=== PATIENT | female | born 1965 | race Caucasian/White ===

== ENCOUNTER 2020-06-11 12:59 | Emergency (ER) | payer MEDICAID ==
[~2020-06-11] VITALS: Ht 165.1 cm; Wt 100.0 kg
[~2020-06-11 12:59] MED LIST: AMIT-189 PO; AMLO5TAB PO; ATOR20TA66 PO; HYDR-3965 PO; LIRA0.6P SQ; LISI-600 PO; METF500T PO
[2020-06-11 13:25] LABS: CLARITY,URINE SLIGHTLY CLOUDY (Clear); COLOR,URINE YELLOW (Yellow); GLUCOSE, URINE 100 mg/dl (Neg); KETONES,URINE NEGATIVE (Neg); LEUKOCYTE ESTERASE ,URINE NEGATIVE (Neg); NITRITES, URINE NEGATIVE (Neg); OCCULT BLOOD,URINE NEGATIVE (Neg); PH,URINE 6.5 (4.8-8.0); PROTEIN,URINE NEGATIVE (Neg); UROBILINOGEN,URINE 0.2 E.U/dL (0.2-1.0)
[2020-06-11 13:26] LABS: UA COLLECTION TYPE CLN CATCH MIDSTREAM
[2020-06-11 13:32] LABS: MUCUS STRANDS MODERATE /LPF (Neg); SQUAMOUS EPITHELIAL CELL,UR MANY /LPF (FEW)
[2020-06-11 13:33] LABS: BACTERIA,URINE 1+ /HPF (Neg); RBC,URINE 0-2 /HPF (0-2); WBC,URINE 0-4 /HPF (0-4)
[2020-06-11] MEDS ORDERED: normal saline 1000ML IV soln IVB ONE (15:25)
[2020-06-11] MEDS ORDERED: morphine 4 MG/ML inj SYRINge IV ONE (15:25)
[2020-06-11] MEDS ORDERED: ondansetron/PF 4mg/2ml inj IV ONE (15:25)
[2020-06-11 15:31] LABS: URINE HCG NEGATIVE (NEG)
[2020-06-11 15:39] LABS: BASOPHILS # (AUTO) 0.1 X10'3 (0-0.2); BASOPHILS % (AUTO) 1.1 % (0-1); EOSINOPHILS # (AUTO) 0.3 X10'3 (0-0.9); EOSINOPHILS % (AUTO) 3.5 % (0-6); HEMATOCRIT 43.1 % (35.0-45.0); HEMOGLOBIN 14.5 g/dl (12.0-16.0); LYMPHOCYTES # (AUTO) 3.6 X10'3 (1.1-4.8); LYMPHOCYTES % (AUTO) 35.9 % (21-51); MEAN CORPUSCULAR HEMOGLOBIN 26.5 PG (27.0-31.0); MEAN CORPUSCULAR HGB CONC 33.6 g/dL (33.0-36.5); MEAN CORPUSCULAR VOLUME 79.1 FL (78-98); MONOCYTES # (AUTO) 0.6 X10'3 (0-0.9); NEUTROPHILS # (AUTO) 5.3 X10'3 (1.8-7.7); NEUTROPHILS % (AUTO) 53.5 % (42-75); PLATELET COUNT 373 X10'3 (140-440); RED BLOOD COUNT 5.45 X10'6 (4.20-5.60); RED CELL DISTRIBUTION WIDTH 13.3 % (11.5-14.5); WHITE BLOOD COUNT 9.9 X10'3 (4.5-11.0)
[2020-06-11 15:59] LABS: ALANINE AMINOTRANSFERASE 32 U/L (12-78); ALBUMIN 3.7 G/DL (3.4-5.0); ALBUMIN/GLOBULIN RATIO 0.9 (1.1-1.5); ALKALINE PHOSPHATASE 156 IU/L (46-116); ANION GAP 8 (8-16); ASPARTATE AMINO TRANSFERASE 21 U/L (10-37); BILIRUBIN,TOTAL 0.5 MG/DL (0.1-1.0); BLOOD UREA NITROGEN 14 MG/DL (7-18); BUN/CREATININE RATIO 21.5 (6.6-38.0); CALCIUM 9.5 MG/DL (8.5-10.1); CHLORIDE 102 MMOL/L (99-107); CREATININE 0.65 MG/DL (0.40-0.90); GLUCOSE 185 MG/DL (70-104); POTASSIUM 3.7 MMOL/L (3.5-5.1); SODIUM 137 MMOL/L (135-145); TOTAL CARBON DIOXIDE 26.9 MMOL/L (24-32); TOTAL PROTEIN 7.9 G/DL (6.4-8.2); eGFR > 90 ML/MIN
[2020-06-11] MEDS ORDERED: ONDA4TAB6 PO (16:27)
[2020-06-11 17:14] VITALS: BP 160/92
== END 2020-06-11 17:05 | disposition home or self-care (01) ==
LOC: ER 12:59
DX: K57.90 Diverticulosis of intestine, part unspecified, without perforation or abscess without bleeding (principal); G43.909 Migraine, unspecified, not intractable, without status migrainosus; E11.9 Type 2 diabetes mellitus without complications; Z98.890 Other specified postprocedural states; Z79.899 Other long term (current) drug therapy
CPT/HCPCS: 36415; 74176; 80053; 81001; 81025; 83605; 85025; 96374; 96375; 99284; J2270; J2405; J7030

== ENCOUNTER 2021-01-17 19:27 | Emergency (ER) | payer MEDICAID ==
[~2021-01-17] VITALS: Ht 162.6 cm; Wt 95.2 kg
[~2021-01-17 19:27] MED LIST changes: -LISI-600 PO; +LISI20TA28 PO; +ONDA4TAB6 PO
[2021-01-17 20:33] LABS: CLARITY,URINE CLEAR (Clear); COLOR,URINE YELLOW (Yellow); GLUCOSE, URINE >=1000 mg/dl (Neg); KETONES,URINE NEGATIVE (Neg); LEUKOCYTE ESTERASE ,URINE NEGATIVE (Neg); NITRITES, URINE NEGATIVE (Neg); OCCULT BLOOD,URINE NEGATIVE (Neg); PROTEIN,URINE NEGATIVE (Neg); UROBILINOGEN,URINE 0.2 E.U/dL (0.2-1.0)
[2021-01-17 20:34] LABS: BASOPHILS # (AUTO) 0.1 X10'3 (0-0.2); BASOPHILS % (AUTO) 0.8 % (0-1); EOSINOPHILS # (AUTO) 0.3 X10'3 (0-0.9); EOSINOPHILS % (AUTO) 2.2 % (0-6); HEMATOCRIT 41.1 % (35.0-45.0); HEMOGLOBIN 13.8 g/dl (12.0-16.0); LYMPHOCYTES # (AUTO) 2.7 X10'3 (1.1-4.8); MEAN CORPUSCULAR HEMOGLOBIN 26.9 PG (27.0-31.0); MEAN CORPUSCULAR HGB CONC 33.6 g/dL (33.0-36.5); MEAN CORPUSCULAR VOLUME 80.2 FL (78-98); MEAN PLATELET VOLUME 8.6 FL (7.4-10.4); MONOCYTES # (AUTO) 0.8 X10'3 (0-0.9); MONOCYTES % (AUTO) 6.5 % (2-12); NEUTROPHILS # (AUTO) 8.3 X10'3 (1.8-7.7); NEUTROPHILS % (AUTO) 68.5 % (42-75); PLATELET COUNT 355 X10'3 (140-440); RED BLOOD COUNT 5.12 X10'6 (4.20-5.60); RED CELL DISTRIBUTION WIDTH 12.2 % (11.5-14.5); WHITE BLOOD COUNT 12.1 X10'3 (4.5-11.0)
[2021-01-17 20:35] LABS: UA COLLECTION TYPE CLN CATCH MIDSTREAM
[2021-01-17 20:38] LABS: BACTERIA,URINE NONE SEEN /HPF (Neg); MUCUS STRANDS NONE SEEN /LPF (Neg); RBC,URINE NONE SEEN /HPF (0-2); SQUAMOUS EPITHELIAL CELL,UR FEW /LPF (FEW); WBC,URINE NONE SEEN /HPF (0-4)
[2021-01-17 20:51] LABS: ALANINE AMINOTRANSFERASE 18 U/L (12-78); ALBUMIN 3.3 G/DL (3.4-5.0); ALBUMIN/GLOBULIN RATIO 0.8 (1.1-1.5); ALKALINE PHOSPHATASE 162 IU/L (46-116); ANION GAP 11 (8-16); ASPARTATE AMINO TRANSFERASE 11 U/L (10-37); BILIRUBIN,TOTAL 0.3 MG/DL (0.1-1.0); BLOOD UREA NITROGEN 17 MG/DL (7-18); BUN/CREATININE RATIO 22.1 (6.6-38.0); CALCIUM 9.4 MG/DL (8.5-10.1); CHLORIDE 101 MMOL/L (99-107); CREATININE 0.77 MG/DL (0.40-0.90); GLUCOSE 316 MG/DL (70-104); LIPASE 100 U/L (73-393); SODIUM 138 MMOL/L (135-145); TOTAL CARBON DIOXIDE 26.1 MMOL/L (24-32); TOTAL PROTEIN 7.7 G/DL (6.4-8.2); eGFR 78 ML/MIN
[2021-01-17] MEDS ORDERED: metroNIDAZOLE-Flagyl 500mg/NS 100 ML IV ONE (20:55)
[2021-01-17] MEDS ORDERED: normal saline 1000ML IV soln IVB ONE ×2 (20:55)
[2021-01-17] MEDS ORDERED: levoFLOXACIN-Levaquin 750MG/D5 150 ML IV ONE (20:55)
[2021-01-17] MEDS ORDERED: morphine 4 MG/ML inj SYRINge IV ONE ×2 (20:55)
[2021-01-17] MEDS ORDERED: METR-159 PO (21:11)
[2021-01-17] MEDS ORDERED: CIPR-202 PO (21:11)
[2021-01-17 22:06] VITALS: BP 121/79
== END 2021-01-17 22:35 | disposition home or self-care (01) ==
LOC: ER 19:28
DX: K57.92 Diverticulitis of intestine, part unspecified, without perforation or abscess without bleeding (principal); R10.32 Left lower quadrant pain; G43.909 Migraine, unspecified, not intractable, without status migrainosus; I10 Essential (primary) hypertension; E11.9 Type 2 diabetes mellitus without complications; Z79.2 Long term (current) use of antibiotics; Z87.442 Personal history of urinary calculi; Z79.899 Other long term (current) drug therapy
CPT/HCPCS: 36415; 80053; 81001; 83690; 85025; 96365; 96368; 96375; 96376; 99284; J1956; J2270; J3490; J7030

== ENCOUNTER 2022-07-27 22:09 | Emergency (ER) | payer MEDICAID ==
[~2022-07-27] VITALS: Ht 165.1 cm; Wt 103.2 kg
[2022-07-27 22:32] LABS: BASOPHILS # (AUTO) 0.1 X10'3 (0-0.2); BASOPHILS % (AUTO) 1.1 % (0-1); EOSINOPHILS # (AUTO) 0.3 X10'3 (0-0.9); EOSINOPHILS % (AUTO) 3.7 % (0-6); HEMATOCRIT 42.2 % (35.0-45.0); HEMOGLOBIN 14.1 g/dl (12.0-16.0); LYMPHOCYTES % (AUTO) 39.4 % (21-51); MEAN CORPUSCULAR HEMOGLOBIN 26.7 PG (27.0-31.0); MEAN CORPUSCULAR HGB CONC 33.5 g/dL (33.0-36.5); MEAN CORPUSCULAR VOLUME 79.7 FL (78-98); MEAN PLATELET VOLUME 9.4 FL (7.4-10.4); MONOCYTES # (AUTO) 0.6 X10'3 (0-0.9); MONOCYTES % (AUTO) 7.7 % (2-12); NEUTROPHILS # (AUTO) 3.7 X10'3 (1.8-7.7); NEUTROPHILS % (AUTO) 48.1 % (42-75); PLATELET COUNT 270 X10'3 (140-440); RED CELL DISTRIBUTION WIDTH 13.6 % (11.5-14.5); WHITE BLOOD COUNT 7.7 X10'3 (4.5-11.0)
[2022-07-27 22:44] LABS: ALANINE AMINOTRANSFERASE 27 U/L (12-78); ALBUMIN 3.8 G/DL (3.4-5.0); ALBUMIN/GLOBULIN RATIO 0.9 (1.1-1.5); ALKALINE PHOSPHATASE 145 IU/L (46-116); ANION GAP 8 (8-16); ASPARTATE AMINO TRANSFERASE 18 U/L (10-37); BILIRUBIN,TOTAL 0.3 MG/DL (0.1-1.0); BLOOD UREA NITROGEN 15 MG/DL (7-18); BUN/CREATININE RATIO 16.7 (6.6-38.0); CALCIUM 8.9 MG/DL (8.5-10.1); CHLORIDE 102 MMOL/L (99-107); GLUCOSE 388 MG/DL (70-104); POTASSIUM 3.8 MMOL/L (3.5-5.1); SODIUM 137 MMOL/L (135-145); TOTAL CARBON DIOXIDE 26.6 MMOL/L (24-32); TOTAL PROTEIN 7.9 G/DL (6.4-8.2); eGFR 65 ML/MIN
[2022-07-27] MEDS ORDERED: cloNIDine 0.1 mg tablet PO STA (23:33)
[2022-07-28] MEDS ORDERED: LISI20TA28 PO (00:26)
[2022-07-28 00:50] VITALS: BP 166/80
== END 2022-07-28 00:52 | disposition home or self-care (01) ==
LOC: ER 22:10
DX: I10 Essential (primary) hypertension (principal); G43.909 Migraine, unspecified, not intractable, without status migrainosus; E11.9 Type 2 diabetes mellitus without complications
CPT/HCPCS: 36415; 71045; 80053; 83880; 84484; 85025; 93005; 99285

== ENCOUNTER → 2024-05-10 | Outpatient (CLI) | payer MEDICAID ==
[~2024-05-10] MED LIST changes: -AMIT-189 PO; +AMIT50TA15 PO
== END | disposition home or self-care (01) ==
LOC: MRI 16:52
PROVIDERS: ATTEND Family Medicine
DX: M67.462 Ganglion, left knee (principal); M25.562 Pain in left knee; M17.12 Unilateral primary osteoarthritis, left knee; M76.52 Patellar tendinitis, left knee
CPT/HCPCS: 73721

== ENCOUNTER 2025-05-03 06:57 | Day surgery (SDC) | payer MEDICAID ==
--- NOTE | 2025-04-25 11:02 | ELECTROCARDIOGRAPH REPORT ---
[facility] Test Date: 2025-04-25 Test Time: 10:58:14 Pat Name: GONZALO STEWART Department: [facility]-PRE-OP Patient ID: [facility]-[id number] Room: Gender: F Ductfixing Plumber: OLEGARIO : 1965 Requested By: MITESH OTOOLE Order Number: [id number] Reading MD: Dr. Nitesh Valladares Measurements Intervals [place] Rate: 85 P: 69 SD: 170 QRS: 47 QRSD: 92 T: 46 QT: 363 QTc: 432 Interpretive Statements Sinus rhythm Electronically Signed On 04-26-2025 8:20:[address] Nitesh Valladares Please click the below link to view image of tracing.
[2025-04-25 11:05] LABS: PRE OP HEMOGLOBIN 14.1 g/dL (12.0-16.0); PRE OP WHITE BLOOD COUNT 10.1 10'3 (4.8-10.8); RED BLOOD COUNT 5.06 X10'6 (4.20-5.60)
[2025-04-25 11:06] LABS: BASOPHILS # (AUTO) 0.1 X10'3 (0-0.2); BASOPHILS % (AUTO) 1.3 % (0-1); EOSINOPHILS # (AUTO) 1.1 X10'3 (0-0.9); EOSINOPHILS % (AUTO) 10.5 % (0-6); LYMPHOCYTES # (AUTO) 2.3 X10'3 (1.1-4.8); MEAN CORPUSCULAR HEMOGLOBIN 27.8 PG (27.0-31.0); MEAN CORPUSCULAR HGB CONC 34.4 g/dL (33.0-36.5); MEAN CORPUSCULAR VOLUME 80.9 FL (78-98); MEAN PLATELET VOLUME 10.6 FL (7.4-10.4); MONOCYTES # (AUTO) 0.5 X10'3 (0-0.9); MONOCYTES % (AUTO) 5.3 % (2-12); NEUTROPHILS # (AUTO) 6.1 X10'3 (1.8-7.7); NEUTROPHILS % (AUTO) 59.9 % (42-75); PRE OP HEMATOCRIT 40.9 % (35.0-45.0); PRE OP PLATELET COUNT 335 X10'3 (140-440); RED CELL DISTRIBUTION WIDTH 15.1 % (11.5-14.5)
[2025-04-25 11:14] LABS: ALBUMIN 3.7 G/DL (3.4-5.0); ALBUMIN/GLOBULIN RATIO 1.1 (1.1-1.5); ALKALINE PHOSPHATASE 148 IU/L (46-116); BLOOD UREA NITROGEN 16 MG/DL (7-18); BUN/CREATININE RATIO 16.3 (10.0-20.0); CALCIUM 9.1 MG/DL (8.5-10.1); CHLORIDE 104 MMOL/L (99-107); CREATININE 0.98 MG/DL (0.40-0.90); PRE OP ALT 31 U/L (30-65); PRE OP ANION GAP 9 (8-16); PRE OP AST 23 U/L (10-37); PRE OP BILIRUB, TOTAL 0.7 MG/DL (0.0-1.0); PRE OP POTASSIUM 4.3 MMOL/L (3.4-5.1); PRE OP SODIUM 140 MMOL/L (135-145); TOTAL CARBON DIOXIDE 26.9 MMOL/L (24-32); eGFR 58 ML/MIN
[2025-04-25 11:25] LABS: PRE OP GLUCOSE 315 MG/DL (70-104)
[2025-05-03] VITALS (11 sets, daily range): BP systolic 138–171; BP diastolic 77–91; PULSE 88–109; RESP 10–18; TEMP 97.6; O2SAT 93–99
[~2025-05-03] VITALS: Ht 165.1 cm; Wt 105.8 kg
[2025-05-03] MEDS: ceFAZolin 2gm/dext,iso 50mL 50 ML IV ONE (05:30)
[~2025-05-03 06:57] MED LIST changes: -AMIT50TA15 PO; -AMLO5TAB PO; -ATOR20TA66 PO; +DULO30CA52 PO; -HYDR-3965 PO; -LIRA0.6P SQ; -LISI20TA28 PO; -METF500T PO; -ONDA4TAB6 PO; +PREG300C20 PO; +TIRZ12.53 SQ
[2025-05-03] MEDS: famotidine 20mg tablet PO ONE (08:20)
[2025-05-03] MEDS: ringers solution, lacted 1,000 ML IV SCH ×2 (08:22→11:45)
[2025-05-03] MEDS: insulin regular, human 10 units/0.1 ml syringe SQ ONE (08:22)
[2025-05-03] MEDS ORDERED: LIDOcaine 1% (10mg/ml)w/preservative inj. 20ml MDV ONE (09:37)
[2025-05-03] MEDS ORDERED: BUPIVAcaine 2.5mg/ml inj 50ml vial (contains preservative) ONE (09:38)
[2025-05-03] MEDS ORDERED: sevoflurane 250ml liquid IH ONE (09:45)
[2025-05-03] MEDS ORDERED: morphine 4 MG/ML inj SYRINge IV PRN (09:50)
[2025-05-03] MEDS ORDERED: HYDROmorphone/PF 0.2 MG/ML SYRINGE IV PRN (09:50)
[2025-05-03] MEDS ORDERED: morphine 2 MG/ML inj. syringe IV PRN (09:50)
[2025-05-03] MEDS ORDERED: meperidine/PF 25mg/ml syringe IV PRN (09:50)
[2025-05-03] MEDS ORDERED: acetaminophen 1,000mg/100ml IV 100 ML IV PRN (09:50)
[2025-05-03] MEDS ORDERED: proCHLORperazine 10 MG/2 ml inj IV PRN (09:50)
[2025-05-03] MEDS ORDERED: ondansetron/PF 4mg/2ml inj IV PRN (09:50)
[2025-05-03] MEDS ORDERED: labetalol 20mg/4ml (5mg/ml) syringe IV PRN (09:50)
[2025-05-03] MEDS ORDERED: midazolam 1 mg/ML 2ml injection ONE (09:54)
[2025-05-03] MEDS ORDERED: fentaNYL /PF 50mcg/ml 5ml ampule ONE (10:17)
[2025-05-03] MEDS: LIDOcaine 1% 30ml preserv. free vial IJ ONE (10:25)
[2025-05-03] MEDS ORDERED: LIDOcaine 2% (20mg/ml) 5ml vial ONE (10:37)
[2025-05-03] MEDS ORDERED: propofol inj 20 ML IV ONE (10:37)
[2025-05-03] MEDS ORDERED: ePHEDrine 50MG/ML INJ. ONE (10:38)
[2025-05-03] MEDS ORDERED: ondansetron/PF 4mg/2ml inj ONE (10:38)
[2025-05-03] MEDS ORDERED: 0.9 % SODIUM CHLORIDE 10 ML VIAL ONE (10:38)
[2025-05-03] MEDS ORDERED: dexamethasone sod phosphate 4mg/ml inj. ONE (10:38)
--- NOTE | 2025-05-03 11:17 | OPERATIVE REPORT ---
Operative Report Providers to ~ Date of Procedure: May 03, 2025 Pre-Operative Diagnosis: Left central breast cancer Post-Operative Diagnosis SAME as PRE-Op Procedure Performed Tracking marker localization segmental mastectomy Surgeon: Mitesh Lim MD Heel Slugger NONE Anesthesiologist: Susy Valladares Type of Anesthesia: General Findings: Tracking marker identified 12 mm from the closest margin which is anterior Complications None Prosthetics\Implants used: None Estimated Blood Loss: Less than 25 cc Specimen Removed: Left central breast mass Description of Procedure: The patient is identified in the supine position with her left arm extended. She is prepped and draped in the usual sterile fashion. Prior to surgery the patient has had an stereotactic guided tracking marker placed in my office identifying the tumor site. Preoperative antibiotics have been administered within 1 hour prior to the patient's incision. SCDs have been applied. A curvilinear incision was made over the audible tracking marker signal. Flaps were raised towards and away from the nipple in the underlying breast tissue was excised in a segmental fashion. The specimen was oriented and sent for patholo gic study in formalin. The wound was thoroughly irrigated. Hemostasis was obtained. The incision was then closed with interrupted 3-0 Vicryl pop-off sutures for the deep layers and a running 3-0 Stratafix suture for skin. Incisions were dressed with Dermabond and Steri-Strips. The patient is taken to the PAR in stable condition. Estimated blood loss less than 25 cc. Final sp onge and needle count was correct x2 Counts repoted as correct: Yes MITESH LIM MD May 03, 2025 11:17
[2025-05-03] MEDS: hydrALAZINE 20mg/ml inj. IV PRN (12:03)
[2025-05-03] MEDS: HYDROmorphone/PF 0.2 MG/ML SYRINGE IV PRN (12:48)
--- NOTE | 2025-05-08 10:12 | PATHOLOGY REPORT ---
[facility] [address] [place] [address] SURGICAL PATHOLOGY REPORT CaseNumber: [id number] Surgeon:Yves Lim M.D. CLINICAL INFORMATION CLINICAL INFORMATION: Left breast segment. Cancer left breast. DIAGNOSIS DIAGNOSIS: BREAST, LEFT; LUMPECTOMY - DUCTAL CARCINOMA IN-SITU, INTERMEDIATE GRADE. - SEE SYNOPTIC REPORT AND MICROSCOPIC DESCRIPTION. - INVASIVE CARCINOMA IS NOT IDENTIFIED. MICROSCOPIC DESCRIPTION MICROSCOPIC DESCRIPTION: 7 H&E stained slides are examined. They show sections of breast tissue with multiple areas of intermediate grade ductal carcinoma in situ, papillary, solid, and cribriform patte rns. I do not see definitive evidence of invasive carcinoma. The in situ carcinoma spans at least 1.5 x 1.4 cm on a slide (A5, surrounding an area of biopsy site related changes), it also spans multiple noncontiguous blocks including A1, A4, A5, and A6. The in situ carcinoma is 2 mm from the blue inked surgical margin (superior), 3 mm from the yellow inked surgical margin (lateral), and 1 mm from the red inked surgical margin (anterior). The orange inked surgical margin (medial) shows focal atypical ducts with significant thermal artifact that are in my opinion suspicious but not diagnostic of ducta l carcinoma in-situ; the differential includes usual ductal hyperplasia and duct-ectasia at the [facility] region. GROSS DESCRIPTION GROSS DESCRIPTION: Received in a container of formalin labeled with the patient's name, number, and " left breast biopsy" is a 46 g oriented excision of fibrofatty breast tissue which measures 6.5 x 5.5 x 3 cm. There are sutures found marking the anterior, superior, and lateral aspects of the excision. The superior margin is marked blue, the inferior margin is marked green, the medial margin is marked orange, the lateral margin is marked yellow, the anterior margin is marked red, and the posterior mar gin is marked black. Sectioning reveals a 0.6 x 0.7 x 0.7 cm firm, topete-leigh neoplasm which is present 0.6 cm from the anterior resection margin. Sectioning the neoplasm reveals foreign material (metalli c clip). Sections are submitted as follows: A1) Superior marginA2) Inferior marginA3) Medial marginA4) Lateral marginA5-A6) Anterior margin with tumorA7) Posterior margin The time at which the specimen was removed was 1050. The time at which the specimen was placed in [facility] was 1054. SYNOPTIC REPORT SYNOPTIC TEXT: DCIS OF THE BREAST: Resection Specimen Procedure: Excision (less than total mastectomy) Specimen Laterality: Left Tumor Tumor Site: Not specified Histologic Type: Ductal carcinoma in situ Size (Extent) of DCIS: 15 x 14 Millimeters (mm) Number of Blocks with DCIS: 4 Number of Blocks Examined: 7 Architectural Patterns: Cribriform; Papillary; Solid Nuclear Grade: Grade II (intermediate) Necrosis: Not identified Microcalcifications: Not identified Margins Margin Status: All margins negative for DCIS Distance from DCIS to Closest Margin: 1 mm Closest Margin(s) to DCIS: Anterior Distance from DCIS to Superior Margin: 2 mm Distance from DCIS to Lateral Margin: 3 mm Margin Comment: The true medial margin appears suspicious for ductal carcinoma in-situ, however, there is significant thermal artifact. Regional Lymph Nodes Regional Lymph Node Status: Not applicable (no regional lymph nodes submitted or found) Pathologic Stage Classification (pTNM, AJCC 8th Edition) pT Category: pTis (DCIS) pN Category: pN not assigned (no nodes submitted or found) [facility] 2023 Q4 Release Electronically signed by: Rob Correia, 05/08/2025 9:33:00 AM
== END 2025-05-03 13:30 | disposition home or self-care (01) ==
LOC: PAS 06:57
PROVIDERS: ATTEND Surgery
DX: C50.112 Malignant neoplasm of central portion of left female breast (principal); C50.212 Malignant neoplasm of upper-inner quadrant of left female breast; E11.9 Type 2 diabetes mellitus without complications; F32.A Depression, unspecified; E66.9 Obesity, unspecified; Z79.899 Other long term (current) drug therapy; Z98.890 Other specified postprocedural states; Z87.891 Personal history of nicotine dependence; Z17.0 Estrogen receptor positive status [ER+]
CPT/HCPCS: 19301; 36415; 80053; 82948; 85025; 93005; J0360; J1100; J1171; J1815; J2003; J2250; J2405; J2704; J3010; J3490; J7030; J7120; Z7506; Z7508; Z7512; A4215; A4618; A6449; A7000

== ENCOUNTER 2025-09-05 11:12 | Outpatient (CLI) | payer MEDICAID ==
--- NOTE | 2025-09-05 13:11 | RADIOLOGY REPORT ---
Procedure: CT CT CHEST LOW DOSE Reason for study/Clinical History: NICOTINE DEPENDENCE, CIGARETTES COMPARISON: DI CHEST,SINGLE VIEW on DOS: 10/31/24, CHEST,SINGLE VIEW on DOS: 07/27/22 TECHNIQUE: Multidetector CT of the chest was performed from the lung apices to the upper abdomen without the use of intravenous contract. Axial, coronal and sagittal multiplanar reformats were performed. Radiation Dose Information: CT Dose: CTDI volume is 3.7 mGy. Dose-length product is 138.5 mGy*cm The dose indicators for CT are the volume Computed Tomography (CT) Dose Index (CTDIvol) and the Dose Length Product (DLP), and are measured in units of mGy and mGy-cm, respectively. These indicators are not patient dose, but values generated from the CT scanner acquisition factors. The report includes radiation exposure data for exposures received during this examination. FINDINGS: Lower neck: Normal thyroid. Lungs: No focal consolidation. No suspicious pulmonary nodules Heart/Vascular Structures: Cardiomegaly. Coronary artery calcifications. Vascular calcifications of the aorta. Lymph Nodes: No adenopathy Pleura: No pleural effusion or significant pneumothorax. Musculoskeletal: No acute osseous abnormality. Mild multilevel degenerative changes of the spine. Soft tissues: Normal. Upper abdomen: Hepatic steatosis. Hepatomegaly. IMPRESSION: No suspicious pulmonary nodule. LUNG RADS Category 1: Continue annual screening with LDCT
== END 2025-09-05 23:59 | disposition home or self-care (01) ==
LOC: RAD 11:12
PROVIDERS: ATTEND Family Medicine
DX: Z12.2 Encounter for screening for malignant neoplasm of respiratory organs (principal); I51.7 Cardiomegaly; K76.0 Fatty (change of) liver, not elsewhere classified; I25.10 Atherosclerotic heart disease of native coronary artery without angina pectoris; M47.814 Spondylosis without myelopathy or radiculopathy, thoracic region; R16.0 Hepatomegaly, not elsewhere classified; F17.210 Nicotine dependence, cigarettes, uncomplicated
CPT/HCPCS: 71271